=== PATIENT | female | born 1950 ===

== ENCOUNTER 2024-09-18 08:10 | Day surgery (SDC) | payer OTHER ==
[2024-09-10 11:19] VITALS: BP 170/88
[~2024-09-18] VITALS: Ht 167.6 cm; Wt 68.0 kg
[~2024-09-18 08:10] MED LIST: AMLODIPINE-OLM1 EAC2 PO; CARVEDILOL12.5 MG
[2024-09-18] MEDS ORDERED: METRONIDAZOLE/SODIUM CHLORIDE 500 MG/100 ML PIGGYBACK IV ONE (15:30)
[2024-09-18] MEDS ORDERED: LIDOCAINE HCL 1%/EPINEPHRINE 20ML VIAL IJ ONE (15:30)
[2024-09-18] MEDS ORDERED: HEMOSTATIC MATRIX 1 KIT KIT TOP ONE (15:30)
[2024-09-18] MEDS ORDERED: BUPIVACAINE HCL 30 ML VIAL IJ ONE (15:30)
[2024-09-18] MEDS ORDERED: CEFTRIAXONE SODIUM 2,000 MG VIAL IV ONE (15:30)
[2024-09-18] MEDS ORDERED: POVIDONE-IODINE 118 ML BOTT TOP ONE (15:30)
[2024-09-18] MEDS ORDERED: DIBUCAINE 15 GM OINT..GM. TUBE RECTAL ONE (15:30)
== END 2024-09-18 17:40 | disposition home or self-care (01) ==
LOC: CIR.AMB 08:10
PROVIDERS: ATTEND Colon & Rectal Surgery
DX: D12.9 Benign neoplasm of anus and anal canal (principal); K64.2 Third degree hemorrhoids; K64.4 Residual hemorrhoidal skin tags